=== PATIENT | male | born 1995 | race Caucasian/White ===

== ENCOUNTER 2018-10-07 13:13 | Day surgery (SDC) | payer OTHER ==
[~2018-10-07] VITALS: Ht 182.9 cm; Wt 89.3 kg
[2018-10-07] VITALS (15 sets, daily range): BP systolic 116–141; BP diastolic 52–77; PULSE 65–102; RESP 10–20; Ht 182.9 cm; Wt 89.3 kg
--- NOTE | 2018-10-07 07:28 | HPN ---
Date/Time of Note Date/Time of Note DATE: 10/07/18 TIME: 07:28 Interval H&P Admission Note Pt. seen H&P reviewed: No system changes MAHSA GARCIA MD Oct 07, 2018 07:28
--- NOTE | 2018-10-07 14:09 | PREAC ---
Date/Time of Note Date/Time of Note DATE: 10/07/18 TIME: 14:08 Anesthesia Eval and Record Evaluation Time Pre-Procedure Interview DATE: 10/07/18 TIME: 14:08 Age 23 Sex male NPO: 8 hrs Preoperative diagnosis L knee pain Planned procedure L ACL Reconstruction Past Medical History Past Medical History: None Surgery & Anesthesia Issues No known issue Meds Anticoagulation: No Beta Marianne within 24 hr: No Reason Beta Marianne not given: Pt. not on B-Marianne No Active Prescriptions or Reported Meds Meds reviewed: Yes Allergies Coded Allergies: No Known Allergy (Unverified , 10/07/18) Allergies Reviewed: Yes Labs/Studies Labs Reviewed: Reviewed by anesthesiologist test: N/A Pre-procedure Exam Last vitals Vital Signs Date Temp Pulse Resp B/P (MAP) Pulse Ox O2 O2 Flow FiO2 Time Delivery Rate 10/07/18 97.5 65 20 130/64 100 Room Air 13:41 (86) Airway: Adequate mouth opening, Adequate thyromental dist Mallampati: Mallampati II Teeth: Normal Lung: Normal Heart: Normal ASA Physical Status ASA physical status: 2 Emergency: None Planned Anesthetic General/MAC: ETT Nerve block: Femoral (left) Pre-operative Attestations Prior to commencing anesthesia and surgery, the patient was re-evaluated, there was verification of: *The patient's identity *The results of appropriate recent lab work and preoperative vital signs *The above evaluation not changing prior to induction *Anesthetic plan, risk benefits, alternative and complications discussed with patient/family; questions answered; patient/family understands, accepts and wishes to proceed. ELISEO MICHEL Oct 07, 2018 14:09
[2018-10-07] MEDS ORDERED: DESFLURANE 15 MIN ONE (14:14)
[2018-10-07] MEDS ORDERED: ROPIVACAINE 0.5 % 30 ML VIAL ONE (14:14)
[2018-10-07] MEDS ORDERED: FENTAnyl 50 MCG/ML VIAL ONE ×2 (14:14→15:53)
[2018-10-07] MEDS ORDERED: MIDAZOLAM 1 MG/ML 2 ML INJ ONE (14:14)
[2018-10-07] MEDS ORDERED: LIDOCAINE 2% (SDV) 5 ML INJ ONE (14:14)
[2018-10-07] MEDS ORDERED: FENTAnyl 50 MCG/ML VIAL IV PRN ×4 (14:30→19:30)
[2018-10-07] MEDS ORDERED: METOCLOPRAMIDE 10 MG INJ IV PRN ×2 (14:30→19:30)
[2018-10-07] MEDS ORDERED: DIPHENHYDRAMINE 50 MG INJ IV PRN (14:30)
[2018-10-07] MEDS ORDERED: HYDROmorphONE 1 MG/5 ML IV SYRINGE IV PRN ×2 (14:30)
[2018-10-07] MEDS ORDERED: MEPERIDINE 25 MG INJ IV PRN (14:30)
[2018-10-07] MEDS ORDERED: ONDANSETRON 4 MG INJ IV PRN (14:30)
[2018-10-07] MEDS ORDERED: CEFAZOLIN 1 GM INJ ONE (14:44)
[2018-10-07] MEDS ORDERED: SUGAMMADEX SODIUM 200 MG/2 ML VIAL IV ONE (14:44)
[2018-10-07] MEDS ORDERED: PROPOFOL 20 ML ONE (14:44)
[2018-10-07] MEDS ORDERED: ROCURONIUM 50 MG INJ ONE (14:44)
[2018-10-07] MEDS ORDERED: SUCCINYLCHOLINE CHLORIDE 100 MG/5 ML SYG IV ONE (14:44)
[2018-10-07] MEDS ORDERED: NEOMYC/POLYMYX/BACIT 3.5GM OPH OINT ONE (15:32)
--- NOTE | 2018-10-07 17:21 | OPR ---
Date/Time of Note Date/Time of Note DATE: 10/07/18 TIME: 17:13 Operative Report Procedure Date: Oct 07, 2018 Preoperative Diagnosis Left knee ACL tear Postoperative Diagnosis Left knee ACL tear Operation/Procedure Performed Left knee arthroscopy with ACL reconstruction with hamstring autograft hybrid tibialis anterior allograft Left knee arthroscopy with chondroplasty Surgeon Mahsa Garcia MD Window Dresser Sima Smith PA-C Second Window Dresser: SIMA SMITH Anesthesia Type: general, other (fascia ilacus) Anesthesiologist: ELISEO MICHEL Tourniquet Time: 100 min at 250 mmHg Estimated Blood Loss: minimal Transfusion none Specimen none Grafts/Implants Mitek 810 bio Intrafix screw Mitek adjustable loop rigid button rti tibialis anterior allograft Complications none Pt Condition Post Procedure: stable Disposition: PACU Indications The patient is a 23-year-old male with a prolonged history of left knee giving way. He has had continued episodes of instability. The patient has restored their range of motion and is now brought to the operating room for ACL reconstruction, possible partial medial and lateral meniscectomy versus medial and lateral meniscal repair, chondroplasty and debridement. The risks, benefits, and alternatives of surgery were discussed with the patient. The risks included but were not limited to infection, bleeding, damage to vessels and nerves, loss of motion, continued pain, re-tear of the meniscus, deep venous thrombosis, and complications due to anesthesia including nerve injury, myocardial infarction, stroke, , etc. The patient stated understan ding of the nature of the surgical procedure and gave written and verbal consent to proceed. Procedure Description The patient was brought to the operating room and placed supine on the operating room table. General anesthesia was induced and a fascia iliacus block was placed. The left lower extremity was examined under anesthesia. Range of motion was 0 degrees of extension to 135 degrees of flexion. There was no varus or valgus or posterolateral instability. He had no instability to varus or valgus stress at 0 or 30 degrees. He had a 2+ Kristian and drawer with a positive pivot shift The left lower extremity was then prepped and draped in the usual fashion. A tourniquet was placed proximally on the thigh over a bias stockinette. A standard anterolateral parapatellar stab wound was created. The knee joint was entered with a blunt-tipped obturator, followed by the 30-degree video arthroscope. An anteromedial portal was established under arthroscopic control. A routine arthroscopic survey was performed. The suprapatellar pouch was unremarkable. The undersurface of the patella was well-preserved. The patella appeared to track centrally within the trochlear groove. Trochlea no chondromalacia. The medial and lateral gutters were inspected and there was no loose body seen. There was no hypertrophied plica. The popliteal hiatus was entered and was unremarkable. The lateral compartment was entered. The lateral femoral condyle exhibited no chondromalacia and the lateral tibial plateau showed no chondromalacia. There was no chondromalacia adjacent to the notch. There was no chondromalacia along the central aspect of the weight bearing lateral tibial plateau. The lateral meniscus was probed and found to be stable and firm on probing The intercondylar notch was visualized. The anterior cruciate ligament was torn from its femoral origin. There was an empty lateral wall. Posteromedially there was no loose body seen. The posterior cruciate ligament was visualized and appeared intact. The medial compartment was entered. The articular surfaces of the medial femoral condyle and medial tibial plateau were visualized. There was minimal chondromalacia noted on the medial femoral condyle, and chondromalacia noted on the medial tibial plateau. The medial meniscus was intact and stable on probing. Attention was turned to reconstruction of the anterior cruciate ligament. Following exsanguination with an Esmarch bandage the tourniquet was inflated to 250 mm of mercury. Using a motorized shaver a limited notchplasty was performed, exposing the lateral wall and roof of the notch, identifying the [id number] position. The stump of the anterior cruciate ligament was debrided. A Vector guide was placed intra-articularly between the tibial spines in line with the anterior horn of the lateral meniscus. A Juan Carlos wire was then inserted into the knee through a 2 cm incision made over the proximal medial tibia for the hamstring harvest. The incision was deepened through the subcutaneous tissue with subperiosteal dissection achieved. Bleeding points were coagulated with the Bovie electrocautery. The Semitendinosis and gracilis were harvested and taken to the back table, showing to be a size 7 mm graft. Due to the small nature of this I added a hybrid tibialis anterior allograft accommodating a 10.5 mm graft on the femoral side and 10.5 mm graft on the tibial side. Tibial drilling was then carried out first with a 6 mm followed by a 8 mm by 10.5 cylindrical reamer with the guide set at 55 degrees. Via an accessory medial portal, the Beath pin was drilled out the femoral cortex and skin with the knee in hyperflexion. The femoral tunnel was then created, with a spade tip guidewire, Depth-gauging confirmed a tunnel length of 35 mm. Then reaming proceeded, 9.5mm drill to a depth of 28mm. A adjustable rigid loop Mitek button was selected. The graft was inserted intra-articularly and the Mitek button was deployed. The graft was cycled for 20 cycles with 25 pounds of force to pre-load the graft. Tibial fixation was carried out using a 8-10 BioIntra-Fix in 10 degrees of flexion with a posterior drawer. At the completion of surgery the patient had a firm stable Kristian. There was a negative pivot shift. The patient had a 0 firm Kristian and a negative pivot shift. There was no evidence for any roof or lateral wall impingement. The tourniquet was deflated at 100 minutes. The knee was irrigated with two liters of lactated Ringer's solution. Excess fluid was drained. The tibial wounds were then copiously irrigated with bacitracin solution and closed in layers with #0, #2-0 and #3-0 Vicryl. The skin was reapproximated with #4-0 Monocryl. The knee was injected with 20 cc of 0.5% plain ropivacaine. A dry sterile dressing was applied, followed by a bulky bandage and Eliazar Wrap with a cold therapy unit placed over the bulky bandage and Eliazar Wrap, insuring no contact with the skin. A postoperative TROM brace was applied locked in full extension. The patient was awakened in the Operating Room and transported to the Recovery Room in satisfactory condition. The patient appeared to tolerate the procedure well. At the completion of surgery the patient had soft compartments, palpable pulses, and brisk capillary refill. There were no complications noted. MAHSA GARCIA MD Oct 07, 2018 17:21
[2018-10-07] MEDS ORDERED: KETOROLAC 30 MG INJ IV SCH (17:30)
[2018-10-07] MEDS ORDERED: morphine 2 MG INJ IV PRN (17:30)
[2018-10-07] MEDS: HYDROmorphONE 1 MG/5 ML IV SYRINGE IV PRN ×2 (17:49→18:30)
--- NOTE | 2018-10-09 09:16 | PAC ---
Date/Time of Note Date/Time of Note DATE: 10/09/18 TIME: 09:16 Post-Anesthesia Notes Post-Anesthesia Note Last documented vital signs Vital Signs Date Temp Pulse Resp B/P (MAP) Pulse Ox O2 O2 Flow FiO2 Time Delivery Rate 10/07/18 88 11 138/70 95 Room Air 18:50 (92) 10/07/18 8.0 17:45 10/07/18 98.1 17:43 Activity: WNL Respiratory function: WNL Cardiovascular function: WNL Mental status: Baseline Pain reasonably controlled: Yes Hydration appropriate: Yes Nausea/Vomiting absent: Yes ELISEO MICHEL Oct 09, 2018 09:16
== END 2018-10-07 19:46 | disposition home or self-care (01) ==
LOC: SDS 13:13
PROVIDERS: ATTEND Orthopaedic Surgery
DX: S83.512A Sprain of anterior cruciate ligament of left knee, initial encounter (principal); X58.XXXA Exposure to other specified factors, initial encounter
CPT/HCPCS: 29888; 82306; C1713; C1762; J0690; J1170; J1885; J2250; J2405; J2765; J2795; J3010; Z7512; Z7610